=== PATIENT | female | born 1995 | race Caucasian/White ===

== ENCOUNTER 2016-04-01 03:57 | Emergency (ER) | payer OTHER ==
[~2016-04-01] VITALS: Ht 157.5 cm; Wt 84.0 kg
[~2016-04-01 03:57] MED LIST: ZOFR4TAB3 PO
[2016-04-01 04:01] VITALS: BP 125/82; PULSE 119; RESP 18; TEMP 98.9; O2SAT 95
[2016-04-01] MEDS ORDERED: PREN29TA PO (04:02)
== END 2016-04-01 06:32 | disposition left against medical advice (07) ==
LOC: NED 03:57
DX: R68.89 Other general symptoms and signs (principal)
CPT/HCPCS: 99281